=== PATIENT | female | born 1955 | race Caucasian/White ===

== ENCOUNTER 2018-10-22 00:43 | Outpatient (CLI) | payer BC | END 2018-10-22 23:59 | disposition home or self-care (01) | LOC: DIABETIC 00:43 | PROVIDERS: ATTEND Specialist | DX: E10.65 Type 1 diabetes mellitus with hyperglycemia (principal); E78.5 Hyperlipidemia, unspecified; Z79.4 Long term (current) use of insulin | CPT/HCPCS: G0108 ==

== ENCOUNTER 2019-01-02 03:37 | Outpatient (CLI) | payer BC | END 2019-01-02 23:59 | disposition home or self-care (01) | LOC: DIABETIC 03:37 | PROVIDERS: ATTEND Specialist | DX: E10.65 Type 1 diabetes mellitus with hyperglycemia (principal); E78.5 Hyperlipidemia, unspecified; Z79.4 Long term (current) use of insulin; Z88.8 Allergy status to other drugs, medicaments and biological substances | CPT/HCPCS: G0108 ==